=== PATIENT | female | born 1980 | race Caucasian/White ===

== ENCOUNTER 2017-09-16 06:23 | Day surgery (SDC) | payer OTHER ==
[2017-09-16] MEDS ORDERED: LIDOCAINE 2% (SDV) 5 ML INJ (07:00)
[2017-09-16] MEDS ORDERED: VASOPRESSIN 20 UNITS INJ (09:19)
[2017-09-16] MEDS ORDERED: ONDANSETRON 4 MG INJ IV (09:30)
[2017-09-16] MEDS ORDERED: EPHEDrine SULFATE 50 MG/5 ML SYG IV (09:30)
[2017-09-16] MEDS ORDERED: hydrALAzine 20 MG INJ IV (09:30)
[2017-09-16] MEDS ORDERED: KETOROLAC 30 MG INJ IV (09:30)
[2017-09-16] MEDS ORDERED: ALBUTEROL 0.083% (NEB) 2.5 MG/3 ML AMP HHN (09:30)
[2017-09-16] MEDS ORDERED: DIPHENHYDRAMINE 50 MG INJ IV (09:30)
[2017-09-16] MEDS ORDERED: MEPERIDINE 25 MG INJ IV (09:30)
[2017-09-16] MEDS ORDERED: MIDAZOLAM 1 MG/ML 2 ML INJ IV (09:30)
[2017-09-16] MEDS ORDERED: LABETALOL HCL 20MG INJ IV (09:30)
[2017-09-16] MEDS ORDERED: FENTAnyl 50 MCG/ML VIAL IV ×3 (09:30)
[2017-09-16] MEDS ORDERED: OXYCODONE/ACETAMINOPHEN (5/325) TAB PO ×2 (09:30)
[2017-09-16] MEDS ORDERED: HYDROmorphONE (0.2 MG/ML) 10ML SYG IV ×2 (09:30)
[2017-09-16] MEDS ORDERED: SUGAMMADEX SODIUM 200 MG/2 ML VIAL IV (10:12)
[2017-09-16] MEDS ORDERED: CEFAZOLIN 1 GM INJ (10:23)
[2017-09-16] MEDS ORDERED: ACETAMINOPHEN 1000MG/100ML IV 100 ML (10:23)
[2017-09-16] MEDS ORDERED: PROPOFOL 20 ML (10:23)
[2017-09-16] MEDS ORDERED: ROCURONIUM 50 MG INJ (10:23)
[2017-09-16] MEDS: METOCLOPRAMIDE 10 MG INJ IV (10:31)
[2017-09-16] MEDS: HYDROmorphONE (0.2 MG/ML) 10ML SYG IV (10:31)
[2017-09-16] MEDS ORDERED: ACETAMINOPHEN 325 MG TAB PO (11:00)
== END 2017-09-16 12:25 | disposition home or self-care (01) ==
LOC: SDS 06:23
DX: N92.0 Excessive and frequent menstruation with regular cycle (principal); R10.2 Pelvic and perineal pain
CPT/HCPCS: 58558; 84702; 86850; 86900; 86901; 88305

== ENCOUNTER 2018-09-14 15:41 | Emergency (ER) | payer OTHER ==
[2018-09-14] MEDS: KETOROLAC 60 MG INJ IM (17:15)
== END 2018-09-14 19:26 | disposition home or self-care (01) ==
LOC: FTE 15:41
DX: M79.641 Pain in right hand (principal); M25.511 Pain in right shoulder; M54.9 Dorsalgia, unspecified
CPT/HCPCS: 29125; 73010; 73030-RT; 73130-RT; 81025; 96372; 99284-25